=== PATIENT | male | born 1995 | race Two or more races ===

== ENCOUNTER 2021-01-10 13:37 | Emergency (ER) | payer OTHER ==
[~2021-01-10] VITALS: Ht 172.7 cm; Wt 55.5 kg
[2021-01-10 20:00] VITALS: BP 123/77
== END 2021-01-10 22:36 | disposition home or self-care (01) ==
LOC: ER 13:37
DX: S93.401A Sprain of unspecified ligament of right ankle, initial encounter (principal); S93.601A Unspecified sprain of right foot, initial encounter; W01.0XXA Fall on same level from slipping, tripping and stumbling without subsequent striking against object, initial encounter; Y93.89 Activity, other specified; Y92.89 Other specified places as the place of occurrence of the external cause; Y99.8 Other external cause status
CPT/HCPCS: 29515; 73610; 73630